=== PATIENT | female | born 1995 | race Caucasian/White ===

== ENCOUNTER 2018-07-16 10:48 | Emergency (ER) | payer BC ==
[~2018-07-16] VITALS: Ht 160 cm; Wt 51.7 kg
[2018-07-16 10:55] VITALS: BP 148/75; PULSE 92; RESP 18; Ht 160 cm; Wt 51.7 kg
[2018-07-16] MEDS ORDERED: ONDANSETRON (ODT) 4 MG TAB ODT STA (11:05)
[2018-07-16] MEDS ORDERED: ONDA4TAB14 PO (11:34)
--- NOTE | 2018-07-16 11:38 | ERD ---
ER Documentation Chief Complaint Chief Complaint n/v/d since 399, w/cramping HPI 23-year-old female complaining of nausea, vomiting, and diarrhea since 4 AM this morning. Patient also reports mild abdominal cramping that is intermittent, and associated with diarrhea. Patient reports unable to maintain p.o. intake. She also had a cough for last couple days. Denies fever or chills. Denies dysuria. Denies marijuana use. Denies past medical history. ROS All systems reviewed and are negative except as per history of present illness. 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 Allergies Allergies: Coded Allergies: No Known Allergy (Unverified , 07/16/18) PMhx/Soc Medical and Surgical Hx: pt denies Medical Hx, pt denies Surgical Hx Hx Alcohol Use: No Hx Substance Use: No Hx Tobacco Use: No Smoking Status: Never smoker Physical Exam Vitals Vital Signs Date Temp Pulse Resp B/P (MAP) Pulse Ox O2 O2 Flow FiO2 Time Delivery Rate 07/16/18 97.7 92 18 148/75 98 10:55 (99) Physical Exam General: Well-developed, well-nourished, conscious and coherent, in no distress Skin: Warm and dry without rash, good texture and turgor Head: Normocephalic without evidence of trauma Nose/Face: Mild nasal congestion Mouth/throat: Mucous membranes are moist. Posterior pharynx clear without erythema or exudates Neck: Supple without meningismus or adenopathy. Carotids are equal. Trachea midline. No bruits or JVD Chest: Normal AP diameter. Good expansion without retractions. Nontender. Lungs are clear to auscultate bilaterally with good tidal volume Heart: Regular rate and rhythm. No murmur, rub, or gallops heard Abdomen: Soft and nontender without masses, guarding, or rebound. Bowel s ounds are active. No hepatosplenomegaly Back: Without spinal or CVA tenderness Extremities: Full range of motion. Good strength bilaterally. No erythema, ecchymosis, or edema. Peripheral pulses are intact. Sensation intact Neuro: Alert and oriented 4, GCS 15. Results 24 hrs Laboratory Tests Test 2/2/19 12:26 POC Beta HCG, Qualitative NEGATIVE Current Medications Medications Dose Sig/Alana Start Time Status Last (Trade) Ordered Route PRN Stop Time Admin Dose Reason Admin Ondansetron 4 mg ONCE STAT 07/16/18 DC 07/16/18 HCl (Zofran ODT 11:05 07/16/18 11:09 Odt) 11:06 Procedures/MDM Patient is afebrile, in no respiratory distress. Lungs are clear to auscultate. I doubt that patient has pneumonia or bronchitis. Patient does not have any abdominal tenderness on palpation. I doubt acute appendicitis, cholecystitis, bowel obstruction or other acute abdomen. Patient's symptoms is consistent with that of viral syndrome. Zofran given to the patient in the ED. Patient able to tolerate p.o. fluid challenge after Zofran. Patient does not have any active vomiting, is able to maintain by mouth fluid intake. Patient does not show any sign of dehydration. Urine negative. Patient appears well, stable for discharge and outpatient management. Medical decision making shared with patient and family. Education provided to patient and family. Patient and family expressed understanding of the plan. Medications on discharge: Zofran. Follow-up: Primary care provider in 2-3 days or return to ED if worse. Disclaimer: Inadvertent spelling and grammatical errors are likely due to EHR/dictation software use and do not reflect on the overall quality of patient care. Also, please note that the electronic time recorded on this note does not necessarily reflect the actual time of the patient encounter. Departure Diagnosis: Primary Impression: Viral syndrome Condition: Stable Patient Instructions: Viral Syndrome (Adult) Referrals: [facility] YOU HAVE RECEIVED A MEDICAL SCREENING EXAM AND THE RESULTS INDICATE THAT YOU DO NOT HAVE A CONDITION THAT REQUIRES URGENT TREATMENT IN THE EMERGENCY DEPARTMENT. FURTHER EVALUATION AND TREATMENT OF YOUR CONDITION CAN WAIT UNTIL YOU ARE SEEN IN YOUR DOCTORS OFFICE WITHIN THE NEXT 1-2 DAYS. IT IS YOUR RESPONSIBILITY TO MAKE AN APPOINTMENT FOR FOLOW-UP CARE. IF YOU HAVE A PRIMARY DOCTOR --you should call your primary doctor and schedule an appointment IF YOU DO NOT HAVE A PRIMARY DOCTOR YOU CAN CALL OUR PHYSICIAN REFERRAL HOTLINE AT IF YOU CAN NOT AFFORD TO SEE A PHYSICIAN YOU CAN CHOSE FROM THE FOLLOWING [facility] CLINICS [facility] [address] [facility]. [facility] [address] [facility] [address] [facility] [address] [facility]. [facility] [address] [facility]. [facility] [address] Additional Instructions: Call your primary care doctor TOMORROW for an appointment during the next 2-3 days.See the doctor sooner or return here if your condition worsens before your appointment time. KANG GALINDO. TOOTIE Jul 16, 2018 11:38
== END 2018-07-16 12:37 | disposition home or self-care (01) ==
LOC: FTE 10:48
DX: B34.9 Viral infection, unspecified (principal); R40.2412 Glasgow coma scale score 13-15, at arrival to emergency department
CPT/HCPCS: 81025; 99283